=== PATIENT | female | born 1990 | race Caucasian/White ===

== ENCOUNTER 2016-07-28 16:04 | Inpatient (IN) | payer OTHER ==
[~2016-07-28] VITALS: Ht 165.1 cm; Wt 63.5 kg
[2016-07-28 16:09] VITALS: BP 126/75; PULSE 130; RESP 18; TEMP 98.6; O2SAT 100
[2016-07-28] MEDS ORDERED: PROCHLORPERAZINE EDISYLATE 10 MG/2 ML VIAL IVP ONE (16:30)
[2016-07-28] MEDS ORDERED: DEXAMETHASONE SOD PHOSPHATE 10 MG/ML VIAL IVP ONE (16:30)
[2016-07-28] MEDS ORDERED: NACL 0.9% 1,000 ML IV ONE (16:30)
[2016-07-28] MEDS ORDERED: ONDANSETRON HCL 4 MG/2 ML VIAL IVP ONE (16:30)
[2016-07-28] MEDS ORDERED: KETOROLAC TROMETHAMINE 30 MG VIAL IVP ONE (16:30)
[2016-07-28 17:06] LABS: HEMATOCRIT 38.8 % (36-48); HEMOGLOBIN 13.2 g/dL (12.0-16.0); MEAN CORPUSCULAR HEMOGLOBIN 29 pg (27-31); MEAN CORPUSCULAR HGB CONC 34 % (32-36); MEAN CORPUSCULAR VOLUME 86 fL (79.0-98.0); PLATELET COUNT (AUTO) 222 K/uL (130-430); RED CELL DISTRIBUTION WIDTH 13.5 % (9.0-15.0); WHITE BLOOD COUNT (AUTO) 18.4 K/uL (4.8-10.8)
[2016-07-28] MEDS ORDERED: ACETAMINOPHEN 500 MG TABLET PO ONE (17:15)
[2016-07-28 17:18] LABS: CALCIUM 8.8 mg/dL (8.4-11.0); CREATININE 0.53 mg/dL (0.55-1.30); POTASSIUM 3.5 mmol/L (3.5-5.1)
[2016-07-28 17:22] LABS: BILIRUBIN,URINE NEGATIVE (NEGATIVE); BLOOD, URINE NEGATIVE (NEGATIVE); COLOR,URINE YELLOW (YELLOW); GLUCOSE,URINE NEGATIVE (NEGATIVE); KETONES,URINE 3+ (NEGATIVE); LEUKOCYTE ESTERASE ,URINE NEGATIVE (NEGATIVE); NITRITE, URINE NEGATIVE (NEGATIVE); PROTEIN URINE NEGATIVE (NEGATIVE); UROBILINOGEN,URINE 0.2 (0.2-1.0)
[2016-07-28] MEDS ORDERED: ADENOSINE 6MG/2ML VIAL ONE (17:22)
[2016-07-28 17:23] LABS: ALBUMIN 4.4 g/dL (3.4-4.8); TOTAL BILIRUBIN 0.6 mg/dL (0.0-1.0); TOTAL PROTEIN, SERUM 8.3 g/dL (6.4-8.3)
[2016-07-28 17:27] LABS: CLARITY/URINE SLIGHTLY HAZY (CLEAR)
[2016-07-28 17:30] LABS: BACTERIA,URINE MODERATE /HPF (None Seen); RBC,URINE NONE SEEN /HPF (0-3)
[2016-07-28] MEDS ORDERED: cefTRIAXone 1 GM IVPB PREMIX 50 ML IV ONE (17:30)
[2016-07-28 17:31] LABS: BARBITURATE, URINE NEGATIVE (NEG <=200); BENZODIAZEPINE, URINE NEGATIVE (NEG <=150); CANNABINOID, URINE NEGATIVE (NEG <=50); COCAINE, URINE NEGATIVE (NEG <=150); METHAMPHETAMINES SCREEN,URINE NEGATIVE (NEG <=500); URINE AMPHETAMINE NEGATIVE (NEG <=500); URINE METHADONE NEGATIVE (NEG <=200)
[2016-07-28 17:32] LABS: MUCUS,URINE 1+ /LPF (None Seen); OPIATE, URINE NEGATIVE (NEG <=100); PHENCYCLIDINE SCREEN,URINE NEGATIVE (NEG <=25); UR TRICYCLIC ANTIDEPRESSANTS NEGATIVE (NEG <=300); URINE OXYCODONE SCREEN NEGATIVE (NEG <=100); URINE PROPOXYPHENE SCREEN NEGATIVE (NEG <=300)
[2016-07-28 17:50] LABS: ATYPICAL LYMPHOCYTES % 4 % (0-0); BAND % (MANUAL) 9 % (0-6); BASOPHILS % (MANUAL) 0 % (0-2); EOSINOPHILS % (MANUAL) 0 % (0-7); LYMPHOCYTES % (MANUAL) 2 % (20-46); MONOCYTES % (MANUAL) 3 % (0-11)
[2016-07-28] MEDS ORDERED: MIDO5TAB20 PO (18:41)
[2016-07-28 19:08] VITALS: BP 103/65; PULSE 124; RESP 15; TEMP 98.6; O2SAT 99
[2016-07-28] MEDS ORDERED: KETOROLAC TROMETHAMINE 15 MG VIAL IVP PRN (20:00)
[2016-07-28] MEDS ORDERED: ONDANSETRON HCL 4 MG/2 ML VIAL IVP PRN (20:00)
[2016-07-28] MEDS ORDERED: PIPERACILLIN/TAZO 4.5GM/DEX-IS 100 ML IV SCH ×2 (20:00→22:00)
[2016-07-28] MEDS ORDERED: ACETAMINOPHEN 325 MG TABLET PO PRN (20:00)
[2016-07-28] MEDS ORDERED: NACL 0.9% 1,000 ML IV SCH (20:15)
[2016-07-28] MEDS ORDERED: FAMOTIDINE PF 20 MG/2 ML VIAL IVP SCH (21:00)
== END 2016-07-28 20:15 | disposition left against medical advice (07) | DRG 872 ==
LOC: SED 16:04 → STU 19:07
PROVIDERS: ADMIT Internal Medicine; ATTEND Internal Medicine
DX: A41.9 Sepsis, unspecified organism (principal); N39.0 Urinary tract infection, site not specified; J02.9 Acute pharyngitis, unspecified
CPT/HCPCS: 36415; 74000-TC; 80053; 80307; 81000-TC; 82150-TC; 83605; 83690-TC; 85007; 85027; 86710; 87040-TC; 87086; 93005; 96361; 96374; 96375; 99285; G0378; J0153; J0696; J0780; J1100; J1885; J2405; J2543